=== PATIENT | male | born 1980 | race Caucasian/White ===

== ENCOUNTER 2016-04-30 23:18 | Emergency (ER) | payer OTHER ==
[~2016-04-30] VITALS: Ht 172.7 cm; Wt 77.1 kg
[~2016-04-30 23:18] MED LIST: AMOXIL500 MG PO; PATADAY 2.5 ML2.5 ML OPH; POLYTRIM O200 GTT/BO OP; ZITHROMAX Z PA250 MG PO
--- NOTE | 2016-04-30 23:46 | ED SYNCOPE COMPLAINT ---
History of Present Illness General Chief Complaint: Allergy Symptoms Stated Complaint: SYNCOPAL EPISODE Source: patient Exam Limitations: no limitations Vital Signs & Intake/Output Vital Signs & Intake/Output Vital Signs Date Time Temp Pulse Resp B/P Pulse O2 O2 Flow FiO2 Ox Delivery Rate 05/01 0031 96.5 88 20 130/92 99 Room Air 04/30 2350 99 Room Air 04/30 2330 93.4 104 20 129/80 99 Room Air ED Intake and Output 05/01 0000 04/30 1200 Intake Total Output Total Balance Patient 170 lb Weight Allergies Coded Allergies: No Known Allergies (04/30/16) Triage Note: PT BIBA FROM HOME POST ALLERIGIC REACTION AFTER COMSUMING BERRIES. PT ATE RASPBERRIES AND THEN APPROX 30 MINS LATER BEGAN HAVING HIVES AND SOB. PT TOOK 50MG PO BENADRYL PRIOR TO EMS ARRIVAL. UPON EMS ARRIVAL PT BP=89/66. PT MEDICATED WITH 125MG SOLUMEDROL VIA EMS. UPON ARRIVAL TO ED, PT RED AND HAD HIVES ALL OVER BODY. PT'S WN=041/80. DENIED HAVING C/P OR SOB AT THIS TIME. Triage Nurses Notes Reviewed? yes HPI: This patient is a 36-year-old male who presented to the emergency department today for evaluation of syncope and possible allergic reaction. The patient reported that this evening he was eating raspberries when he developed shortness of breath, feeling flushed, and hives. He reported that he felt, "itchy all over." He reported that he had a similar rash about a month ago when he ate blackberries. He reported though that he has eaten blackberries since then with no problem. He decided to get into the shower at that time. After he got out of the shower he was worried that he used a towel that was used to off the dog and that was why he was feeling more itchy than before, so he got back in the shower. He started to feel dizzy right after he got out of the shower for the second time and faint. He reported that he fell down. He does not think that he lost consciousness. He denied hitting his head. The patient took 2 Benadryl at home. He received 125 mg of Solu-Medrol en route to the hospital. The patient currently is denying any itchiness, chest pain, difficulty breathing , dizziness, lightheadedness, abdominal pain, nausea, or any other associated symptoms. (SADIE MORALES PA-C) Reconcile Medications Epinephrine (Epipen 2-J Luis) 0.3 MG/0.3 ML AUTO.INJCT 1 U ID ONCE PRN allergic reaction (VASU ARENAS MD) Past History Travel History Traveled to [place] past 21 day No Medical History Any Pertinent Medical History? 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 No (SADIE MORALES PA-C) Review of Systems Review of Systems Constitutional: Reports: no symptoms. EENTM: Reports: no symptoms. Respiratory: Reports: see HPI. Cardiovascular: Reports: no symptoms. GI: Reports: no symptoms. Genitourinary: Reports: no symptoms. Musculoskeletal: Reports: no symptoms. Skin: Reports: see HPI. Neurological/Psychological: Reports: no symptoms. All Other Systems: Reviewed and Negative (SADIE MORALES PA-C) Physical Exam Physical Exam Cranial Nerves: normal hearing, normal speech, PERRL Comments: Well-developed well-nourished person in no acute distress HEENT: Normal EENT exam, head normocephalic/atraumatic, moist mucous membranes PERRLA bilaterally. EOMI bilaterally with no nystagmus No pharyngeal injection. No oral pharyngeal edema. Neck: Supple, no lymphadenopathy Back: Normal inspection Cardiovascular: Regular rate and rhythm with no murmurs Respiratory: Chest nontender. No respiratory distress. Breath sounds clear to auscultation bilaterally with no wheezes, rales, or rhonchi Abdomen: Soft, nontender and nondistended Extremity: Normal and equal pulses. Neuro: Alert oriented x3, cranial nerves II through XII grossly intact. No focal neurologic deficits Skin: Erythematous, coalescing rash over the upper extremities and chest, skin is warm and dry. Psych: Mood and affect is normal Core Measures ACS in differential dx? No CVA/TIA Diagnosis: No Severe Sepsis Present: No Septic Shock Present: No (SADIE MORALES PA-C) Progress Differential Diagnosis: drug induced syncope, hyperventilation, orthostatic syncope, other valvular disease, pulmonary embolus, seizure, sick sinus syndrome , subarachnoid hem., allergic reaction, anaphylaxis, angioedema Plan of Care: Current Medications Sig/Aron Start time Last Medication Dose Stop Time Status Admin Famotidine 20 MG ONCE ONE 04/305 UNVr (Pepcid) 04/30 2346 Comments: 05/01/2016 12:33:46 AM: Patient is requesting to go home at this time. I was at the bedside for reevaluation. Rash and hives have resolved. The patient is denying any chest pain, difficulty breathing, itchiness, or any other symptoms. 99% on room air. Blood pressure has normalized. Patient reported feeling better. Counseled the patient on staying away from [facility] and following up with an systems librarian. 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 AVOID EATING BERRIES. RETURN FOR ANY WORSENING SYMPTOMS OR CONCERNS. Departure Forms: Customer Survey General Discharge Information Prescriptions: Current Visit Scripts Epinephrine (Epipen 2-J Luis) 1 U ID ONCE PRN allergic reaction #1 U (SADIE MORALES PA-C) PA/WARDROBE STYLIST Co-Sign Statement Statement: ED Attending supervision documentation- [] I saw and evaluated the patient. I have also reviewed all the pertinent lab results and diagnostic results. I agree with the findings and the plan of care as documented in the PA's/WARDROBE STYLIST's documentation. x I have reviewed the ED Record and agree with the PA's/WARDROBE STYLIST's documentation. [] Additions or exceptions (if any) to the PAs/WARDROBE STYLIST's note and plan are summarized below: [] (DEEPA SAGASTUME,VASU)
[2016-05-01 00:31] VITALS: BP 130/92
[2016-05-01] MEDS ORDERED: EPIPEN 2-P0.3 MG/0.3 ID (00:35)
== END 2016-05-01 00:57 ==
LOC: ERH 23:18
DX: T78.1XXA Other adverse food reactions, not elsewhere classified, initial encounter (principal); R06.02 Shortness of breath; R23.2 Flushing; L50.9 Urticaria, unspecified
CPT/HCPCS: 96374